=== PATIENT | female | born 2000 | race Caucasian/White ===

== ENCOUNTER 2021-05-15 21:39 | Outpatient (CLI) | payer MEDICAID, SELFPAY ==
[2021-05-15 22:25] VITALS: BP 127/57; PULSE 125; RESP 20; TEMP 37.1; O2SAT 98; BMI 31.2
== END 2021-05-15 23:45 | disposition home or self-care (01) ==
LOC: OBOUT 21:43 → OB 21:44
PROVIDERS: PCP Family Medicine; Visit Provider Nurse Practitioner Obstetrics & Gynecology
DX: O26.893 Other specified pregnancy related conditions, third trimester (principal); Z3A.31 31 weeks gestation of pregnancy; R56.9 Unspecified convulsions
CPT/HCPCS: 59025; 96365; G0463

== ENCOUNTER 2021-05-31 14:07 | Outpatient (CLI) | payer MEDICAID, SELFPAY ==
[2021-05-31 14:59] VITALS: BMI 32.3
[2021-05-31 15:03] LABS: Microscopic, Urine URINE MICROSCOPIC (MICROSCOPIC)
[2021-05-31 15:18] VITALS: BP 137/92; PULSE 106; RESP 18; O2SAT 96; BMI 32.3
[2021-05-31 15:27] LABS: Appearance,Urine CLOUDY (Clear); Bilirubin,Urine Negative (Negative); Blood, Urine 1+ (Negative); Color,Urine YELLOW (Yellow); Glucose,Urine (UA) Negative (Negative); Ketones,Urine Negative (Negative); Leukocyte Esterase,Urine 2+ (Negative); Nitrate,Urine Negative (Negative); PH,Urine 5.5 (5.0-8.5); Protein,Urine Negative (Negative); Specific Gravity, Urine >= 1.030 (1.005-1.030); Urobilinogen,Urine 0.2 EU/dl (0.2)
[2021-05-31 15:38] LABS: Benzodiazepines Screen,Urine Negative ng/ml (<200)
[2021-05-31 15:39] LABS: Amphetamine/Metha Screen,Urine Negative ng/ml (<1000)
[2021-05-31 15:40] LABS: Bacteria,Urine 4+ /lpf; Calcium Oxalate Crystals,Urine 3+ /lpf; Mucus,Urine 3+ /lpf; Squamous Epithelial Cell,Urine 20-50 #/hpf (0-5); WBC,Urine 20-50 #/hpf (0-3)
[2021-05-31 15:40] LABS: Barbiturates Screen,Urine Negative ng/ml (<200); Methadone Screen,Urine Negative ng/ml (<300)
[2021-05-31 15:41] LABS: Cannabinoid Screen,Urine Negative ng/ml (<50)
[2021-05-31 15:42] LABS: Cocaine Screen,Urine Negative ng/ml (<300); Opiate Screen,Urine Negative ng/ml (<300)
[2021-05-31 15:43] LABS: Phencyclidine Screen,Urine Negative ng/ml (<25)
== END 2021-05-31 16:10 | disposition home or self-care (01) ==
LOC: OBOUT 14:10 → OB 14:13
PROVIDERS: PCP Family Medicine; Visit Provider Nurse Practitioner Obstetrics & Gynecology
DX: O36.8130 Decreased fetal movements, third trimester, not applicable or unspecified (principal); Z3A.33 33 weeks gestation of pregnancy; W19.XXXA Unspecified fall, initial encounter
CPT/HCPCS: 59025; 80305; 81001; 87086; G0463

== ENCOUNTER 2021-06-13 23:01 | Outpatient (CLI) | payer MEDICAID, SELFPAY ==
[2021-06-13 23:01] VITALS: BMI 33.4
[2021-06-13 23:27] VITALS: BP 135/87; PULSE 118; RESP 16; TEMP 36.8; O2SAT 97; BMI 33.4
[2021-06-13 23:47] LABS: Microscopic, Urine URINE MICROSCOPIC (MICROSCOPIC)
[2021-06-13 23:57] LABS: Appearance,Urine SL CLOUDY (Clear); Bilirubin,Urine Negative (Negative); Blood, Urine TRACE-I (Negative); Color,Urine YELLOW (Yellow); Glucose,Urine (UA) Negative (Negative); Ketones,Urine TRACE (Negative); Leukocyte Esterase,Urine Negative (Negative); Nitrate,Urine Negative (Negative); PH,Urine 5.5 (5.0-8.5); Protein,Urine 2+ (Negative); Specific Gravity, Urine >= 1.030 (1.005-1.030); Urobilinogen,Urine 0.2 EU/dl (0.2)
[2021-06-14 00:05] LABS: Bacteria,Urine 1+ /lpf; RBC,Urine Occasional #/hpf (0-3)
[2021-06-14 00:10] LABS: Amphetamine/Metha Screen,Urine Negative ng/ml (<1000)
[2021-06-14 00:11] LABS: Barbiturates Screen,Urine Negative ng/ml (<200); Benzodiazepines Screen,Urine Negative ng/ml (<200)
[2021-06-14 00:12] LABS: Cannabinoid Screen,Urine Negative ng/ml (<50); Cocaine Screen,Urine Negative ng/ml (<300)
[2021-06-14 00:13] LABS: Methadone Screen,Urine Negative ng/ml (<300)
[2021-06-14 00:14] LABS: Opiate Screen,Urine Negative ng/ml (<300); Phencyclidine Screen,Urine Negative ng/ml (<25)
== END 2021-06-14 00:25 | disposition home or self-care (01) ==
LOC: OBOUT 23:04 → OB 23:05
PROVIDERS: PCP Family Medicine; Visit Provider Obstetrics & Gynecology
DX: O36.8130 Decreased fetal movements, third trimester, not applicable or unspecified (principal); Z3A.35 35 weeks gestation of pregnancy
CPT/HCPCS: 59025; 80305; 81001; 94761; G0283; G0463